=== PATIENT | female | born 1990 | race Two or more races ===

== ENCOUNTER 2019-07-31 19:49 | Emergency (ER) | payer BC ==
[~2019-07-31] VITALS: Ht 172.7 cm; Wt 78.3 kg
--- NOTE | 2019-07-31 20:59 | NUR ---
FROM LOBBY TO ROOM AT THIS TIME
--- NOTE | 2019-07-31 21:04 | NUR ---
THIS IS A 28YO FEMALE THAT COMES IN FOR RIGHT SIDED FLANK PAIN SINCE LAST NIGHT. PT IS 19WKS 3RD , NO LIVING CHILDREN. PT DENIES HX KIDNEY STONES OR URINARY SYMPTOMS. PT RESTING ON GURNEY, CALL LIGHT WITHIN REACH, SPOUSE AT BEDSIDE. PT CONNECTED TO MONITORING VSS.
--- NOTE | 2019-07-31 21:19 | NUR ---
PT DENIES RECENT TRAUMA, BLEEDING CRAMPING OR VAG DISCHARGE.
[2019-07-31] MEDS ORDERED: ACETAMINOPHEN 500 MG TABLET PO ONE (22:00)
--- NOTE | 2019-07-31 22:04 | NUR ---
LABS COLLECTED, PT IN US AT THIS TIME
[2019-07-31 22:12] LABS: ALANINE AMINOTRANSFERASE 7 U/L (12-78); ALBUMIN 2.7 g/dL (3.4-5.0); ANION GAP 5 mmol/L (5-15); CALCIUM 8.9 mg/dL (8.5-10.1); CHLORIDE 111 mmol/L (98-107); CREATININE 0.55 mg/dL (0.55-1.02)
[2019-07-31 22:13] LABS: BASOPHILS # (AUTO) 0.11 x10^3/uL (0-0.1); BASOPHILS % (AUTO) 1 % (0-1); EOSINOPHILS # (AUTO) 0.18 x10^3/uL (0-0.4); EOSINOPHILS % (AUTO) 2 % (1-7); LYMPHOCYTES # (AUTO) 3.42 x10^3/uL (1-3.4); LYMPHOCYTES % (AUTO) 30 % (22-44); MD NO; MEAN CORPUSCULAR HEMOGLOBIN 25.6 pg (27.0-34.8); MEAN CORPUSCULAR HGB CONC 32.1 g/dL (32.4-35.8); MEAN CORPUSCULAR VOLUME 79.8 fL (80-100); MEAN PLATELET VOLUME 9.4 fL (7.4-10.4); MONOCYTES # (AUTO) 0.81 x10^3/uL (0.2-0.8); MONOCYTES % (AUTO) 7 % (2-9); NEUTROPHILS # (AUTO) 7.06 x10^3/uL (1.8-6.8); NEUTROPHILS % (AUTO) 61 % (42-75); PLATELET COUNT 204 x10^3/uL (130-400); RED BLOOD COUNT 4.02 x10^6/uL (3.82-5.3); RED CELL DISTRIBUTION WIDTH 18.4 % (9.6-15.2)
[2019-07-31 22:15] LABS: ALKALINE PHOSPHATASE 49 U/L (45-117); BILIRUBIN,TOTAL 0.4 mg/dL (0.2-1.0); TOTAL PROTEIN 6.5 g/dL (6.4-8.2)
[2019-07-31] MEDS ORDERED: ACETAMINOPHEN 500 MG TABLET ONE (22:37)
--- NOTE | 2019-07-31 22:38 | NUR ---
PT PROVIDED WITH JUICE.
--- NOTE | 2019-07-31 22:40 | NUR ---
PT BACK FROM US, MEDICATED PER MAR
--- NOTE | 2019-07-31 22:44 | NUR ---
ALL RESULTS BACK AT THIS TIME, CHART UP FOR RECHECK
--- NOTE | 2019-07-31 22:50 | NUR ---
REPORT GIVEN TO ОЛЬГА YUSUF
[2019-07-31] MEDS ORDERED: HYDROcodone/APAP 5/325 TABLET PO ONE (23:30)
[2019-07-31] MEDS ORDERED: HYDROcodone/APAP 5/325 TABLET ONE (23:42)
--- NOTE | 2019-07-31 23:48 | NUR ---
TASK RN: DENNY PARRA COMPLETED, COLLECTED, AND WALKED TO LAB.
[2019-07-31 23:56] LABS: CULTURE INDICATED? YES; MICROSCOPIC INDICATED
[2019-08-01 00:51] VITALS: BP 132/78
== END 2019-08-01 00:54 | disposition home or self-care (01) ==
LOC: ED 08-01 00:47
DX: O26.892 Other specified pregnancy related conditions, second trimester (principal); R10.9 Unspecified abdominal pain; M54.5 Low back pain; Z3A.19 19 weeks gestation of pregnancy
CPT/HCPCS: 36415; 76700; 76815; 80053; 81001; 83690; 85025; 87086; 99284

== ENCOUNTER 2019-10-12 21:23 | Outpatient (CLI) | payer BC ==
[~2019-10-12] VITALS: Ht 167.6 cm; Wt 85.0 kg
[2019-10-12 21:55] VITALS: BP 102/61
[2019-10-12 22:03] LABS: MICROSCOPIC AUTO
[2019-10-12] MEDS ORDERED: PREN1TAB60 PO (22:38)
[2019-10-12] MEDS ORDERED: VIT D PO (22:39)
[2019-10-12] MEDS ORDERED: ASPI-515 PO (22:40)
[2019-10-12] MEDS ORDERED: CLON0.1T22 PO (22:40)
[2019-10-12] MEDS ORDERED: HYDR200T72 PO (22:40)
[2019-10-12] MEDS ORDERED: CALCIUM CARBONATE 500 MG TAB.CHEW ONE (22:57)
[2019-10-12] MEDS ORDERED: CALCIUM CARBONATE 500 MG TAB.CHEW PO PRN (23:30)
== END 2019-10-12 23:23 | disposition home or self-care (01) ==
LOC: LDOP 21:23
PROVIDERS: ATTEND Obstetrics & Gynecology Female Pelvic Medicine and Reconstructive Surgery
DX: O26.893 Other specified pregnancy related conditions, third trimester (principal); R10.9 Unspecified abdominal pain; Z3A.30 30 weeks gestation of pregnancy
CPT/HCPCS: 59025; 81001; 87086; 99211; G0463

== ENCOUNTER 2019-10-12 23:32 | Emergency (ER) | payer BC ==
[~2019-10-12] VITALS: Ht 167.6 cm; Wt 85.0 kg
[~2019-10-12 23:32] MED LIST: ASPI-515 PO; CLON0.1T22 PO; HYDR200T72 PO; PREN1TAB60 PO; VIT D PO
[2019-10-12 23:45] VITALS: BP 117/78
--- NOTE | 2019-10-12 23:52 | NUR ---
Patient presents to ER from L&D c/o dizziness and SOB. Patient is 30 weeks ; baby was evaluated in L&D and determined to be healthy and patient was not in labor. Patient states she has had dizziness and SOB for the last few days but it is getting worse. She states it comes and goes and describes it "like a rollercoaster ride." She states her heart feels heavy and it's hard to breathe or take a deep breath then it goes away. Patient c/o nausea and has been taking Zofran with no relief. Patient denies episodes of syncope. Denies CP, POE, fever. Patient is in NAD. Respirations even and unlabored.
[2019-10-13] LABS: BASOPHILS # (AUTO) 0.05 x10^3/uL (0-0.1); BASOPHILS % (AUTO) 0 % (0-1); EOSINOPHILS # (AUTO) 0.08 x10^3/uL (0-0.4); EOSINOPHILS % (AUTO) 1 % (1-7); LYMPHOCYTES # (AUTO) 3.01 x10^3/uL (1-3.4); LYMPHOCYTES % (AUTO) 26 % (22-44); MD NO; MEAN CORPUSCULAR HEMOGLOBIN 25.2 pg (27.0-34.8); MEAN CORPUSCULAR HGB CONC 32.3 g/dL (32.4-35.8); MEAN CORPUSCULAR VOLUME 78.2 fL (80-100); MEAN PLATELET VOLUME 8.8 fL (7.4-10.4); MONOCYTES # (AUTO) 0.81 x10^3/uL (0.2-0.8); MONOCYTES % (AUTO) 7 % (2-9); NEUTROPHILS % (AUTO) 66 % (42-75); PLATELET COUNT 244 x10^3/uL (130-400); RED BLOOD COUNT 3.99 x10^6/uL (3.82-5.3); RED CELL DISTRIBUTION WIDTH 14.8 % (9.6-15.2)
[2019-10-13 00:11] LABS: ALANINE AMINOTRANSFERASE 9 U/L (12-78); ALBUMIN 2.5 g/dL (3.4-5.0); ANION GAP 6 mmol/L (5-15); CALCIUM 9.2 mg/dL (8.5-10.1); CHLORIDE 110 mmol/L (98-107)
[2019-10-13 00:16] LABS: ALKALINE PHOSPHATASE 72 U/L (45-117); BILIRUBIN,TOTAL 0.4 mg/dL (0.2-1.0); TOTAL PROTEIN 6.5 g/dL (6.4-8.2); TROPONIN I < 0.015 ng/mL (0.000-0.045)
== END 2019-10-13 01:17 | disposition home or self-care (01) ==
LOC: ED 10-13 00:25
DX: O26.893 Other specified pregnancy related conditions, third trimester (principal); R07.2 Precordial pain; Z3A.30 30 weeks gestation of pregnancy; Z87.891 Personal history of nicotine dependence
CPT/HCPCS: 36415; 71045; 80053; 83880; 84484; 85025; 85379; 93005; 99284

== ENCOUNTER 2019-10-25 19:37 | Outpatient (CLI) | payer BC ==
[~2019-10-25] VITALS: Ht 167.6 cm; Wt 86.8 kg
[2019-10-25 20:34] LABS: MICROSCOPIC INDICATED
[2019-10-25] MEDS ORDERED: LACTATED RINGERS 1,000 ML IVBOLUS ONE (22:00)
[2019-10-25] MEDS ORDERED: ACETAMINOPHEN 325 MG TABLET ONE (23:20)
[2019-10-25] MEDS ORDERED: ACETAMINOPHEN 325 MG TABLET PO ONE (23:30)
== END 2019-10-26 00:15 | disposition home or self-care (01) ==
LOC: LDOP 19:37 → LDIP 21:21 → UNDOADMOB 21:21 → LDOP 10-26 00:15 → UNDODISOB 10-26 00:15
PROVIDERS: ATTEND Obstetrics & Gynecology Female Pelvic Medicine and Reconstructive Surgery
DX: O26.893 Other specified pregnancy related conditions, third trimester (principal); R10.9 Unspecified abdominal pain; Z3A.31 31 weeks gestation of pregnancy
CPT/HCPCS: 59025; 81001; 87086; 99211; J7120; G0378; G0463

== ENCOUNTER 2019-11-12 19:57 | Outpatient (CLI) | payer BC ==
[~2019-11-12] VITALS: Ht 167.6 cm; Wt 87.0 kg
[2019-11-12 20:26] LABS: MICROSCOPIC INDICATED
[2019-11-12] MEDS ORDERED: PLEASE ENTER HEIGHT AND WEIGHT MC SCH (21:00)
[2019-11-12] MEDS ORDERED: LACTATED RINGERS 1,000 ML IVBOLUS ONE (21:00)
[2019-11-12 21:52] VITALS: BP 122/74
[2019-11-12] MEDS ORDERED: TERBUTALINE 1 MG/ML, 1ML SQ ONE (23:00)
[2019-11-12] MEDS ORDERED: TERBUTALINE 1 MG/ML, 1ML ONE (23:08)
[2019-11-12] MEDS ORDERED: LACTATED RINGERS 1,000 ML IV SCH (23:15)
== END 2019-11-13 00:40 | disposition home or self-care (01) ==
LOC: LDOP 19:57 → UNDOADMOB 20:46 → LDIP 20:46 → LDOP 11-13 00:40 → UNDODISOB 11-13 00:40
PROVIDERS: ATTEND Obstetrics & Gynecology Female Pelvic Medicine and Reconstructive Surgery
DX: O26.893 Other specified pregnancy related conditions, third trimester (principal); R10.9 Unspecified abdominal pain; Z3A.37 37 weeks gestation of pregnancy; Z79.82 Long term (current) use of aspirin
CPT/HCPCS: 59025; 81001; 87086; 96360; 96361; 96372; 99211; J3105; J7120; G0378; G0463

== ENCOUNTER 2019-11-18 17:27 | Outpatient (CLI) | payer BC ==
[~2019-11-18] VITALS: Ht 167.6 cm; Wt 89.1 kg
[2019-11-18 17:40] VITALS: BP 109/64
[2019-11-18 18:03] LABS: MICROSCOPIC NOT IND
== END 2019-11-18 19:00 | disposition home or self-care (01) ==
LOC: LDOP 17:27
PROVIDERS: ATTEND Obstetrics & Gynecology Female Pelvic Medicine and Reconstructive Surgery
DX: O26.893 Other specified pregnancy related conditions, third trimester (principal); R10.9 Unspecified abdominal pain; Z3A.35 35 weeks gestation of pregnancy
CPT/HCPCS: 59025; 81003; 87086; 99211; G0463

== ENCOUNTER 2019-11-19 18:40 | Outpatient (CLI) | payer BC ==
[~2019-11-19] VITALS: Ht 167.6 cm; Wt 89.1 kg
== END 2019-11-19 20:41 | disposition home or self-care (01) ==
LOC: LDOP 18:40
PROVIDERS: ATTEND Obstetrics & Gynecology Female Pelvic Medicine and Reconstructive Surgery
DX: O42.912 Preterm premature rupture of membranes, unspecified as to length of time between rupture and onset of labor, second trimester (principal); Z3A.36 36 weeks gestation of pregnancy; Z88.1 Allergy status to other antibiotic agents; Z88.2 Allergy status to sulfonamides
CPT/HCPCS: 59025; 89060; 99211; G0463; Q0114

== ENCOUNTER 2019-11-19 22:48 | Observation (INO) | payer BC ==
[2019-11-19] MEDS ORDERED: SODIUM CHLORIDE FLUSH 10ML SYR IVF PRN (23:00)
[2019-11-19 23:01] VITALS: BP 111/62
[2019-11-19] MEDS: LACTATED RINGERS 1,000 ML IV SCH (23:09)
[2019-11-19] MEDS ORDERED: MORPHINE SULFATE 4 MG/ML, 1ML IVPush PRN (23:30)
[2019-11-19] MEDS ORDERED: MORPHINE SULFATE 4 MG/ML, 1ML ONE (23:37)
[2019-11-19] MEDS ORDERED: PLEASE ENTER HEIGHT AND WEIGHT MC SCH (23:45)
[2019-11-20 00:29] LABS: MICROSCOPIC INDICATED
[2019-11-20] MEDS ORDERED: MORPHINE SULFATE 4 MG/ML, 1ML ONE (02:15)
[2019-11-20] MEDS: LACTATED RINGERS 1,000 ML IV SCH (02:20)
[2019-11-20] MEDS ORDERED: MORPHINE SULFATE 4 MG/ML, 1ML IVPush PRN (02:30)
== END 2019-11-20 08:51 | disposition home or self-care (01) ==
LOC: LDOP 22:48 → LDIP 23:43
PROVIDERS: ADMIT Obstetrics & Gynecology; ATTEND Obstetrics & Gynecology
DX: O60.03 Preterm labor without delivery, third trimester (principal); M32.9 Systemic lupus erythematosus, unspecified; Z79.82 Long term (current) use of aspirin
CPT/HCPCS: 59025; 81001; 84112; 87081; 87086; 96360; 96361; 99211; G0378; J2270; J7120; G0463

== ENCOUNTER 2019-11-25 16:29 | Outpatient (CLI) | payer BC ==
[~2019-11-25] VITALS: Ht 167.6 cm; Wt 90.4 kg
[2019-11-25 17:03] VITALS: BP 115/63
== END 2019-11-25 17:31 | disposition home or self-care (01) ==
LOC: LDOP 16:29
PROVIDERS: ATTEND Obstetrics & Gynecology
DX: O26.893 Other specified pregnancy related conditions, third trimester (principal); R10.9 Unspecified abdominal pain; Z3A.36 36 weeks gestation of pregnancy
CPT/HCPCS: 36415; 59025; 82239; 99211; G0463

== ENCOUNTER 2019-11-30 09:58 | Outpatient (CLI) | payer BC ==
[~2019-11-30] VITALS: Ht 167.6 cm; Wt 91.2 kg
[2019-11-30 10:26] VITALS: BP 102/64
[2019-11-30 11:34] LABS: MICROSCOPIC INDICATED
[2019-11-30 11:48] LABS: BASOPHILS # (AUTO) 0.01 x10^3/uL (0-0.1); BASOPHILS % (AUTO) 0 % (0-1); EOSINOPHILS # (AUTO) 0.09 x10^3/uL (0-0.4); EOSINOPHILS % (AUTO) 1 % (1-7); LYMPHOCYTES # (AUTO) 2.19 x10^3/uL (1-3.4); LYMPHOCYTES % (AUTO) 21 % (22-44); MD NO; MEAN CORPUSCULAR HEMOGLOBIN 24.3 pg (27.0-34.8); MEAN CORPUSCULAR HGB CONC 32.2 g/dL (32.4-35.8); MEAN CORPUSCULAR VOLUME 75.4 fL (80-100); MEAN PLATELET VOLUME 9.1 fL (7.4-10.4); MONOCYTES # (AUTO) 0.88 x10^3/uL (0.2-0.8); MONOCYTES % (AUTO) 8 % (2-9); NEUTROPHILS # (AUTO) 7.54 x10^3/uL (1.8-6.8); NEUTROPHILS % (AUTO) 70 % (42-75); PLATELET COUNT 233 x10^3/uL (130-400); RED BLOOD COUNT 4.16 x10^6/uL (3.82-5.3); RED CELL DISTRIBUTION WIDTH 15.9 % (9.6-15.2)
== END 2019-11-30 12:15 | disposition home or self-care (01) ==
LOC: LDOP 09:58
PROVIDERS: ATTEND Obstetrics & Gynecology
DX: O26.893 Other specified pregnancy related conditions, third trimester (principal); Z3A.37 37 weeks gestation of pregnancy
CPT/HCPCS: 36415; 59025; 81001; 85025; 87086; 99211; G0463

== ENCOUNTER 2019-12-11 12:35 | Outpatient (CLI) | payer BC ==
[~2019-12-11] VITALS: Ht 167.6 cm; Wt 93.6 kg
[2019-12-11 12:44] VITALS: BP 97/58
== END 2019-12-11 13:55 | disposition home or self-care (01) ==
LOC: LDOP 12:35
PROVIDERS: ATTEND Obstetrics & Gynecology
DX: O36.8130 Decreased fetal movements, third trimester, not applicable or unspecified (principal); Z3A.38 38 weeks gestation of pregnancy
CPT/HCPCS: 59025; 76815; 99211; G0463

== ENCOUNTER 2019-12-14 14:16 | Inpatient (IN) | payer BC ==
[~2019-12-14] VITALS: Ht 167.6 cm; Wt 92.0 kg
[2019-12-14] MEDS ORDERED: OXYTOCIN 30U/ 0.9% NaCL 500ML 500 ML ONE (21:16)
[2019-12-14] MEDS ORDERED: MISOPROSTOL 25 MCG TABLET ONE (21:16)
[2019-12-14] MEDS ORDERED: NEWBORN KIT ONE (21:16)
[2019-12-14] MEDS ORDERED: MISOPROSTOL 200 MCG TABLET ONE (21:16)
[2019-12-14] MEDS ORDERED: LIDOCAINE 1%, 20ML ONE (21:16)
[2019-12-14] MEDS ORDERED: OXYTOCIN 30U/ 0.9% NaCL 500ML 500 ML IV PRN (21:38)
[2019-12-14] MEDS ORDERED: OXYTOCIN 30U/ 0.9% NaCL 500ML 500 ML IV ONE (21:38)
[2019-12-14 21:51] VITALS: BP 110/68
[2019-12-14 21:58] LABS: BASOPHILS # (AUTO) 0.09 x10^3/uL (0-0.1); BASOPHILS % (AUTO) 1 % (0-1); EOSINOPHILS # (AUTO) 0.11 x10^3/uL (0-0.4); EOSINOPHILS % (AUTO) 1 % (1-7); LYMPHOCYTES # (AUTO) 3.35 x10^3/uL (1-3.4); LYMPHOCYTES % (AUTO) 23 % (22-44); MD NO; MEAN CORPUSCULAR HEMOGLOBIN 23.9 pg (27.0-34.8); MEAN CORPUSCULAR HGB CONC 31.9 g/dL (32.4-35.8); MEAN CORPUSCULAR VOLUME 74.9 fL (80-100); MEAN PLATELET VOLUME 9.9 fL (7.4-10.4); MONOCYTES # (AUTO) 0.86 x10^3/uL (0.2-0.8); MONOCYTES % (AUTO) 6 % (2-9); NEUTROPHILS # (AUTO) 10.04 x10^3/uL (1.8-6.8); NEUTROPHILS % (AUTO) 70 % (42-75); PLATELET COUNT 291 x10^3/uL (130-400); RED BLOOD COUNT 4.69 x10^6/uL (3.82-5.3)
[2019-12-14] MEDS ORDERED: FENTANYL PF 100 MCG/2ML IV PRN (22:00)
[2019-12-14] MEDS ORDERED: SODIUM CITRATE/CITRIC ACID 30 ML UDC PO PRN (22:00)
[2019-12-14] MEDS ORDERED: TERBUTALINE 1 MG/ML, 1ML SQ PRN (22:00)
[2019-12-14] MEDS ORDERED: CALCIUM CARBONATE 500 MG TAB.CHEW PO PRN (22:00)
[2019-12-14] MEDS ORDERED: TERBUTALINE 1 MG/ML, 1ML IVPush PRN (22:00)
[2019-12-14] MEDS: LACTATED RINGERS 1,000 ML IV SCH (22:15)
[2019-12-14] MEDS: MISOPROSTOL 25 MCG TABLET VG PRN (22:16)
[2019-12-15] MEDS ORDERED: ACETAMINOPHEN 325 MG TABLET ONE (03:14)
[2019-12-15] MEDS ORDERED: ACETAMINOPHEN 325 MG TABLET PO ONE (03:30)
[2019-12-15] MEDS: LACTATED RINGERS 1,000 ML IV SCH ×5 (04:15→19:23)
[2019-12-15] MEDS: MISOPROSTOL 25 MCG TABLET VG PRN (04:15)
[2019-12-15] MEDS ORDERED: MISOPROSTOL 25 MCG TABLET ONE (04:18)
[2019-12-15] MEDS ORDERED: OXYTOCIN 30U/ 0.9% NaCL 500ML 500 ML ONE (09:05)
[2019-12-15] MEDS: LACTATED RINGERS 1,000 ML IVBOLUS PRN ×2 (09:33→09:58)
[2019-12-15] MEDS ORDERED: FENTANYL/BUPIV./NS/PF 250 ML EPIDCONT SCH (09:41)
[2019-12-15] MEDS ORDERED: FENTANYL PF 100 MCG/2ML ONE ×2 (09:44→09:51)
[2019-12-15] MEDS: FENTANYL PF 100 MCG/2ML IVPush PRN (09:48)
[2019-12-15] MEDS ORDERED: EPHEDRINE 50 MG/ML, 1ML IVPush PRN ×2 (10:00→14:30)
[2019-12-15] MEDS ORDERED: FENTANYL PF 500 MCG, BUPIVACAINE/PF 0.5%, 30ML 62.5 ML in SODIUM CHLORIDE 0.9% 177.5 ML EPIDCONT SCH (10:30)
[2019-12-15] MEDS ORDERED: BUPIVACAINE 0.25% ONE (10:30)
[2019-12-15] MEDS: D5%-LACTATED RINGERS 1,000 ML IV SCH ×3 (13:38→21:38)
[2019-12-15] MEDS: FENTANYL/BUPIV./NS/PF 250 ML EPIDCONT SCH (14:03)
[2019-12-15] MEDS ORDERED: NALOXONE 0.4 MG/ML, 1ML IVPush PRN (14:30)
[2019-12-15] MEDS ORDERED: ONDANSETRON 2MG/ML, 2ML IVPush PRN (14:30)
[2019-12-15] MEDS ORDERED: DIPHENHYDRAMINE 50 MG/ML, 1ML IVPush PRN (14:30)
[2019-12-15] MEDS ORDERED: LACTATED RINGERS 1,000 ML IVBOLUS PRN (14:30)
[2019-12-15] MEDS ORDERED: ONDANSETRON 2MG/ML, 2ML ONE ×2 (16:46→22:14)
[2019-12-15] MEDS: ONDANSETRON 2MG/ML, 2ML IVPush PRN ×2 (16:47→22:44)
[2019-12-15 19:30] VITALS: BP 102/55
[2019-12-15] MEDS ORDERED: ACETAMINOPHEN 500 MG TABLET ONE (19:43)
[2019-12-15] MEDS ORDERED: ACETAMINOPHEN 500 MG TABLET PO ONE (20:00)
[2019-12-15] MEDS ORDERED: METOCLOPRAMIDE 5 MG/ML, 2ML ONE (21:55)
[2019-12-15] MEDS ORDERED: LIDOCAINE/PF 1.5%-EPI 1:200K, 30ML ONE (22:00)
[2019-12-15] MEDS ORDERED: METOCLOPRAMIDE 5 MG/ML, 2ML IVPush PRN (22:00)
[2019-12-16] MEDS: LACTATED RINGERS 1,000 ML IV SCH ×13 (01:41→22:03)
[2019-12-16] MEDS: D5%-LACTATED RINGERS 1,000 ML IV SCH ×4 (03:22→21:38)
[2019-12-16] MEDS: HYDROXYCHLOROQUINE 200 MG TABLET PO SCH (08:00)
[2019-12-16] MEDS ORDERED: FENTANYL/BUPIV./NS/PF 250 ML EPIDCONT ONE (08:15)
[2019-12-16] MEDS: FENTANYL/BUPIV./NS/PF 250 ML EPIDCONT SCH (14:03)
[2019-12-16] MEDS ORDERED: METOCLOPRAMIDE 5 MG/ML, 2ML IV ONE (15:00)
[2019-12-16] MEDS ORDERED: AZITHROMYCIN 500 MG in SODIUM CHLORIDE 0.9% 250 ML IV STA (15:11)
[2019-12-16] MEDS ORDERED: SODIUM CITRATE/CITRIC ACID 30 ML UDC ONE (15:18)
[2019-12-16] MEDS ORDERED: METOCLOPRAMIDE 5 MG/ML, 2ML ONE (15:18)
[2019-12-16] MEDS ORDERED: BUPIVACAINE 0.25% ONE ×2 (15:20→15:56)
[2019-12-16] MEDS ORDERED: FENTANYL PF 100 MCG/2ML ONE (15:20)
[2019-12-16] MEDS ORDERED: CLINDAMYCIN PMX 900MG/50ML 50 ML ONE (15:25)
[2019-12-16] MEDS ORDERED: ONDANSETRON 2MG/ML, 2ML ONE (15:32)
[2019-12-16] MEDS ORDERED: EPHEDRINE 50 MG/ML, 1ML ONE (15:55)
[2019-12-16] MEDS ORDERED: PHENYLEPHRINE 10 MG/ML ONE (15:55)
[2019-12-16] MEDS ORDERED: WATER-INJECTION,STERILE 10 ML IV ONE (15:55)
[2019-12-16] MEDS ORDERED: OXYTOCIN 10 UNITS/ML, 1ML ONE (15:55)
[2019-12-16] MEDS ORDERED: CEFAZOLIN 1,000 MG ONE (15:55)
[2019-12-16] MEDS ORDERED: LIDOCAINE-MPF 2% ,5ML ONE (15:55)
[2019-12-16] MEDS ORDERED: BUPIVACAINE/PF 0.25% ONE (15:55)
[2019-12-16] MEDS ORDERED: morphine SULFATE/PF 0.5 MG/ML, 10ML ONE (15:57)
[2019-12-16] MEDS ORDERED: OXYcodone/APAP 5/325MG TABLET ONE (17:18)
[2019-12-16] MEDS ORDERED: KETOROLAC 30 MG/1 ML ONE (17:18)
[2019-12-16] MEDS: OXYcodone/APAP 5/325MG TABLET PO PRN ×2 (17:25→22:07)
[2019-12-16] MEDS ORDERED: KETOROLAC 30 MG/1 ML IV ONE (17:30)
[2019-12-16] MEDS ORDERED: KETOROLAC 30 MG/1 ML IM SCH (17:30)
[2019-12-16] MEDS: OXYTOCIN 30U/ 0.9% NaCL 500ML 500 ML IV SCH (18:10)
[2019-12-16] MEDS ORDERED: METHYLERGONOVINE 0.2 MG/ML IM PRN (18:30)
[2019-12-16] MEDS ORDERED: MISOPROSTOL 200 MCG TABLET SL PRN (18:30)
[2019-12-16] MEDS ORDERED: ONDANSETRON 2MG/ML, 2ML IV PRN (18:30)
[2019-12-16] MEDS ORDERED: ACETAMINOPHEN 325 MG TABLET PO PRN (18:30)
[2019-12-16] MEDS ORDERED: OXYcodone IR 5MG TABLET PO PRN ×2 (18:30)
[2019-12-16] MEDS ORDERED: MORPHINE SULFATE 4 MG/ML, 1ML IVPush PRN (18:30)
[2019-12-16] MEDS ORDERED: morphine SULFATE 10 MG/ML, 1ML IVPush PRN (18:30)
[2019-12-16 20:00] VITALS: BP 106/67
[2019-12-16] MEDS: DOCUSATE 100 MG CAPSULE PO PRN (22:07)
[2019-12-17 00:08] LABS: MEAN CORPUSCULAR HEMOGLOBIN 23.9 pg (27.0-34.8); MEAN CORPUSCULAR HGB CONC 31.9 g/dL (32.4-35.8); MEAN PLATELET VOLUME 9.9 fL (7.4-10.4); PLATELET COUNT 220 x10^3/uL (130-400); RED BLOOD COUNT 4.05 x10^6/uL (3.82-5.3); RED CELL DISTRIBUTION WIDTH 16.6 % (9.6-15.2)
[2019-12-17 00:24] LABS: MD YES
[2019-12-17 00:25] LABS: ANISOCYTOSIS 1+; BAND#(MANUAL) 3.54 x10^3/uL; BANDS%(MANUAL) 20 % (0-7); BASOS#(MANUAL) 0.18 x10^3/uL (0-0.1); BASOS% (MANUAL) 1 % (0-1); LYMPH#(MANUAL) 0.89 x10^3/uL (1-3.4); LYMPHS% (MANUAL) 5 % (22-44); MICROCYTOSIS 1+; SEGS% (MANUAL) 74 % (42-75)
[2019-12-17 00:26] LABS: <PLATELET ESTIMATE> ADEQUATE; OVALOCYTES 1+
[2019-12-17 00:27] LABS: <PLT MORPHOLOGY> NORMAL PLT MORPH
[2019-12-17] MEDS ORDERED: KETOROLAC 30 MG/1 ML ONE (00:28)
[2019-12-17] MEDS: KETOROLAC 30 MG/1 ML IV SCH ×4 (00:30→19:50)
[2019-12-17 00:42] VITALS: BP 110/62
[2019-12-17] MEDS: LACTATED RINGERS 1,000 ML IV SCH ×9 (01:41→20:00)
[2019-12-17] MEDS: OXYTOCIN 30U/ 0.9% NaCL 500ML 500 ML IV SCH ×2 (02:45→14:10)
[2019-12-17] MEDS: OXYcodone/APAP 5/325MG TABLET PO PRN ×3 (03:12→22:27)
[2019-12-17 03:16] VITALS: BP 102/66
[2019-12-17] MEDS: SIMETHICONE 80 MG CHEW TAB PO PRN ×2 (04:57→22:25)
[2019-12-17] MEDS: D5%-LACTATED RINGERS 1,000 ML IV SCH (05:03)
[2019-12-17 07:00] VITALS: BP 97/66
[2019-12-17] MEDS: HYDROXYCHLOROQUINE 200 MG TABLET PO SCH ×2 (08:20→08:24)
[2019-12-17] MEDS: DOCUSATE 100 MG CAPSULE PO PRN ×2 (08:20→22:25)
[2019-12-17] MEDS: PRENATAL VIT/IRON/FA 1 EACH TABLET PO SCH (08:20)
[2019-12-17 12:10] VITALS: BP 94/61
[2019-12-17 18:50] VITALS: BP 107/72
[2019-12-18] MEDS: OXYTOCIN 30U/ 0.9% NaCL 500ML 500 ML IV SCH ×3 (00:10→19:39)
[2019-12-18] MEDS: LACTATED RINGERS 1,000 ML IV SCH ×6 (00:10→19:40)
[2019-12-18] MEDS: KETOROLAC 30 MG/1 ML IV SCH ×3 (02:00→14:00)
[2019-12-18] MEDS: SIMETHICONE 80 MG CHEW TAB PO PRN ×2 (05:18→13:39)
[2019-12-18] MEDS: OXYcodone/APAP 5/325MG TABLET PO PRN ×4 (05:19→21:32)
[2019-12-18] MEDS: DOCUSATE 100 MG CAPSULE PO PRN ×2 (07:29→21:32)
[2019-12-18] MEDS: HYDROXYCHLOROQUINE 200 MG TABLET PO SCH (07:30)
[2019-12-18] MEDS: PRENATAL VIT/IRON/FA 1 EACH TABLET PO SCH (07:30)
[2019-12-18 07:54] VITALS: BP 117/71
[2019-12-18] MEDS ORDERED: OXYcodone/APAP 5/325MG TABLET PO PRN (13:30)
[2019-12-18 20:00] VITALS: BP 104/63
[2019-12-19] MEDS: OXYcodone/APAP 5/325MG TABLET PO PRN ×6 (01:57→23:39)
[2019-12-19 07:15] VITALS: BP 108/72
[2019-12-19] MEDS: SIMETHICONE 80 MG CHEW TAB PO PRN ×3 (07:58→20:13)
[2019-12-19] MEDS: PRENATAL VIT/IRON/FA 1 EACH TABLET PO SCH (07:58)
[2019-12-19] MEDS: HYDROXYCHLOROQUINE 200 MG TABLET PO SCH (07:59)
[2019-12-19] MEDS: DOCUSATE 100 MG CAPSULE PO PRN (07:59)
[2019-12-19 20:00] VITALS: BP 109/73
[2019-12-20] MEDS: OXYcodone/APAP 5/325MG TABLET PO PRN ×4 (04:18→18:19)
[2019-12-20 08:15] VITALS: BP 111/75
[2019-12-20] MEDS ORDERED: IBUP-1223 PO (08:20)
[2019-12-20] MEDS ORDERED: OXYC-302 PO (08:20)
[2019-12-20] MEDS: HYDROXYCHLOROQUINE 200 MG TABLET PO SCH (09:23)
[2019-12-20] MEDS: SIMETHICONE 80 MG CHEW TAB PO PRN (09:24)
[2019-12-20] MEDS: PRENATAL VIT/IRON/FA 1 EACH TABLET PO SCH (09:24)
[2019-12-20] MEDS: DOCUSATE 100 MG CAPSULE PO PRN (09:28)
== END 2019-12-20 18:25 | disposition home or self-care (01) | DRG 787 ==
LOC: LDIP 20:19 → UNDOADMIN 20:19 → LDIP 20:23 → UNDOADMIN 20:23 → LDIP 20:56 → 2NW 12-16 18:33
PROVIDERS: ADMIT Obstetrics & Gynecology; ATTEND Obstetrics & Gynecology
PROC: 10D00Z1 Extraction of Products of Conception, Low, Open Approach (ICD-10-PCS; principal; 2019-12-16)
DX: O77.0 Labor and delivery complicated by meconium in amniotic fluid (principal); D62 Acute posthemorrhagic anemia; M32.9 Systemic lupus erythematosus, unspecified; O12.04 Gestational edema, complicating childbirth; O76 Abnormality in fetal heart rate and rhythm complicating labor and delivery; O99.844 Bariatric surgery status complicating childbirth; O99.89 Other specified diseases and conditions complicating pregnancy, childbirth and the puerperium; Z37.0 Single live birth; Z3A.39 39 weeks gestation of pregnancy; O90.81 Anemia of the puerperium; Z88.8 Allergy status to other drugs, medicaments and biological substances
CPT/HCPCS: 36415; J3490; J7121; S0020; 82803; 85025; 86592; 86850; 86900; G0378; J0456; J0690; J1885; J2274; J2405; J3010; J2370; J2590; J2765; J7050; J7120

== ENCOUNTER 2020-07-13 11:21 | Emergency (ER) | payer BC ==
[~2020-07-13] VITALS: Ht 167.6 cm; Wt 87.0 kg
[~2020-07-13 11:21] MED LIST changes: +IBUP-1223 PO; +OXYC-302 PO
[2020-07-13 11:23] VITALS: BP 124/70
[2020-07-13 12:10] LABS: ALBUMIN 3.4 g/dL (3.4-5.0); BASOPHILS % (AUTO) 1 % (0-1); CALCIUM 9.7 mg/dL (8.5-10.1); CREATININE 0.83 mg/dL (0.55-1.02); EOSINOPHILS % (AUTO) 1 % (1-7); LYMPHOCYTES % (AUTO) 26 % (22-44); MEAN CORPUSCULAR HEMOGLOBIN 24.6 pg (27.0-34.8); MEAN CORPUSCULAR HGB CONC 31.5 g/dL (32.4-35.8); MEAN PLATELET VOLUME 8.6 fL (7.4-10.4); MONOCYTES % (AUTO) 12 % (2-9); NEUTROPHILS % (AUTO) 61 % (42-75); PLATELET COUNT 265 x10^3/uL (130-400); RED BLOOD COUNT 4.57 x10^6/uL (3.82-5.3); RED CELL DISTRIBUTION WIDTH 14.8 % (9.6-15.2)
[2020-07-13 12:17] LABS: MD NO
[2020-07-13 12:21] LABS: ANION GAP 3 mmol/L (5-15); CHLORIDE 108 mmol/L (98-107)
== END 2020-07-13 13:43 | disposition home or self-care (01) ==
LOC: ED 13:41
DX: J06.9 Acute upper respiratory infection, unspecified (principal); Z20.828 Contact with and (suspected) exposure to other viral communicable diseases; R07.89 Other chest pain; I51.7 Cardiomegaly; M32.9 Systemic lupus erythematosus, unspecified; Z87.891 Personal history of nicotine dependence
CPT/HCPCS: 36415; 71045; 80048; 82040; 85025; 87635; 93005; 99285